=== PATIENT | male | born 1970 | race Caucasian/White ===

== ENCOUNTER 2019-07-18 13:27 | Outpatient (CLI) | payer BC, SELFPAY ==
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
== END 2019-07-18 13:28 | disposition home or self-care (01) ==
PROVIDERS: Family Provider Electrodiagnostic Medicine; PCP Electrodiagnostic Medicine; Visit Provider Electrodiagnostic Medicine
DX: M79.672 Pain in left foot (principal); M77.32 Calcaneal spur, left foot
CPT/HCPCS: 73630

== ENCOUNTER 2019-07-30 11:17 | Emergency (ER) | payer BC, SELFPAY ==
[2019-07-30 11:19] VITALS: BMI 33.9
--- NOTE | 2019-07-30 11:19 | XR_ITS ---
WS: [id number] PORTABLE CHEST HISTORY: Chest discomfort COMPARISON: 03/02/2018 Benign granuloma central LEFT lung. No pneumonia. No pneumothorax. No pleural effusion or pneumothora x. Cardiac size: Normal. Mediastinum/Aorta: Normal mediastinum. No osseous abnormality seen. XR/XR chest 1V portable [id number] IMPRESSION: Unremarkable portable chest.
--- NOTE | 2019-07-30 11:19 | ECG_ITS ---
[facility] Test Date: 2019-07-30 Pat Name: Ger Bar Department: Room: Gender: Male Inventory Transcriber: : 1970 Requested By: Zoe Chacon Order Number: [id number] Carmelo MD: Adriane Veronica M.D. Measurements Intervals [place] Rate: 83 P: 48 HI: 144 QRS: 43 QRSD: 93 T: 49 QT: 349 QTc: 412 Interpretive Statements SINUS RHYTHM Compared to ECG 03/02/2018 12:38:22 No significant changes Electronically Signed On 07-30-2019 23:41:51 CDT by Adriane Veronica M.D. [id number] f
[2019-07-30 11:25] VITALS: BP 124/75; PULSE 86; RESP 18; TEMP 37.1; O2SAT 96
[2019-07-30 11:48] VITALS: BP 122/73; BP 124/75; BP 126/76; PULSE 86; PULSE 92; PULSE 98
[2019-07-30 11:55] LABS: Basophils % 0.4 %; Eosinophils # 0.1 10^3/uL (0.0-0.8); Eosinophils % 2.5 %; Hematocrit 42.2 % (42.0-52.0); Hemoglobin 13.7 g/dL (11.7-16.6); Lymphocytes # 0.9 10^3/uL (0.8-4.8); Lymphocytes % 33.1 %; Mean Corpuscular HGB Conc 32.5 g/dL (30.0-36.0); Mean Corpuscular Hemoglobin 33.7 pg (28.0-34.0); Mean Corpuscular Volume 103.7 fL (80-94); Mean Platelet Volume 11.1 fL (7.4-10.4); Monocytes # 0.4 10^3/uL (0.2-0.9); Monocytes % 14.4 %; Neutrophils # 1.4 10^3/uL (1.8-7.7); Neutrophils % 49.2 %; Nucleated Red Blood Cells % 0 %; Platelet Count 59 10^3/cmm (130-400); Red Blood Count 4.07 10^6/uL (4.1-5.3); Red Cell Distribution Width 13.2 % (12.1-15.1); White Blood Count 2.8 10^3/uL (4.0-10.0)
[2019-07-30 12:17] LABS: Troponin(5th) Baseline 11 ng/L (0-15)
[2019-07-30 12:25] LABS: Alanine Aminotransferase 36 U/L (0-41); Albumin Level 4.4 g/dL (3.5-5.2); Alkaline Phosphatase 80 IU/L (40-130); Anion Gap 18.4 (5-19); Aspartate Amino Transferase 37 U/L (0-40); Blood Urea Nitrogen 12 mg/dL (6-20); Calcium 9.6 mg/dL (8.5-10.5); Carbon Dioxide 22 mmol/L (22-29); Chloride 104 mmol/L (98-107); Globulin 1.8 g/dL (1.3-4.6); Glomerular Filtration Rate 119.4 mL/min (90-130); Glucose 137 mg/dL (65-115); Lipase 33 U/L (13-60); Magnesium 1.7 mg/dL (1.7-2.3); Osmolality Calculated 288 mOsm/kg (285-295); Potassium 4.4 mmol/L (3.5-5.1); Sodium 140 mmol/L (136-145); Thyroid Stimulating Hormone 0.92 uIU/mL (0.27-4.20); Total Bilirubin 1.2 mg/dL (0.15-1.2); Total Protein 6.2 g/dL (6.6-8.7)
--- NOTE | 2019-07-30 12:35 | W.ED.SYNCOPE ---
HPI - Syncope General: Chief Complaint: Syncope Stated Complaint: warmth in chest/lightheaded/weakness Time Seen by Provider: 07/30/19 11:19 Source: patient Mode of arrival: ambulatory Limitations: no limitations History of Present Illness: HPI narrative: Mr. Bar is a nice 49-year-old male who comes in complaining of an episode of feeling warm all over, lightheaded, fatigued and like he could nearly pass out. Patient was only doing mild exertion at that time. The symptoms lasted a total of 4 to 5 minutes and then resolve spontaneously. The patient has had similar symptoms in the past but has never been able to figure out a cause. He denies any chest pain but he did have palpitations during this episode. Patient denies any headache, back pain, abdominal pain, leg or extremity pain, or increased weakness one side more than another. Associated symptoms: Deny abdominal pain, chest pain, fever(s), headache(s), lightheadedness, nausea or vertigo Review of Systems Const: Reports: fatigue and malaise; Denies: fever(s), chills, body aches or diaphoresis Eyes: Denies: change in vision, blurry vision, blind spots, photophobia, eye discharge or eye redness ENMT: Denies: throat pain, odynophagia, hoarseness, swelling of lips/tongue, oral sores, ear or mastoid pain, ear discharge, change in hearing or nasal discharge Card: Reports: palpitations and pre-syncope; Denies: chest pain, irregular heart rhythm, edema, lightheadedness, syncope, dyspnea on exertion or orthopnea Resp: Denies: dyspnea, productive cough, non-productive cough, wheezing, hemoptysis or chest congestion GI: Denies: abdominal pain, nausea, vomiting, hematemesis, coffee ground emesis, heartburn, diarrhea, constipation, GI cramping, hematochezia or melena : Denies: flank pain, dysuria, urinary frequency, urinary urgency or hematuria Musc: Denies: neck pain, back pain, extremity pain, extremity swelling, joint pain, joint swelling, joint redness, joint warmth or joint stiffness Skin/Breast: Denies: rash, pruritus, erythema, skin tenderness or jaundice Neuro: Reports: weakness in extremities and dizziness; Denies: headache(s), numbness in extremities, sensory changes, lack of coordination, difficulty walking, vertigo, confusion, Slurred speech present or seizure-like activity Brandyn/Lymph: Denies: easy bruising, easy bleeding, petechiae, purpura or enlarged lymph nodes All/Imm: Denies: urticaria, throat swelling, tongue swelling, facial swelling or acute wheezing PFSH ED PFSH: Medical History Diabetes Hypertension Surgical History History of knee surgery Social History Smoking and tobacco status: never smoked Physical Exam Const: COMMON NORMALS: no acute distress, patient oriented x3, no limitations, healthy appearing and well nourished GENERAL APPEARANCE: cooperative, well kempt and well developed HENMT: COMMON NORMALS: normocephalic, atraumatic, external ears normal, EAC's normal and Normal external nose present HEAD & SCALP: normal to inspection, normocephalic and atraumatic FACE & SINUS: normal facial exam and face symmetric NOSE: Normal external nose present and Normal nares present EXTERNAL EAR: Yes external ears normal EXTERNAL AUDITORY CANAL: EAC's normal MOUTH: Normal oral and palatal mucosa present, lip normal and tongue normal Eye: COMMON NORMALS: Equal, round and reactive pupils present and conjunctivae normal GENERAL EYE: appearance normal, both eyes and all related structures ALIGNMENT: Yes alignment normal PERIORBITAL: periorbital findings normal EYELID: eyelids normal CONJUNCTIVA: Yes conjunctivae normal SCLERA: sclerae normal PUPIL: Yes Equal, round and reactive pupils present Neck/C-Spine: COMMON NORMALS: full ROM, no lymphadenopathy, supple, no meningeal signs and no JVD GENERAL: Yes normal visual inspection and Yes trachea midline Chest: COMMONS NORMALS: normal inspection of the chest and normal palpation of entire chest wall Resp: COMMON NORMALS: normal respiratory effort, No retractions and No use of accessory muscles EFFORT & INSPECTION: Yes able to speak in complete sentences and Yes symmetric chest movement AUSCULTATION: no crackles, no rales, no rhonchi and no wheezes Cardio: COMMON NORMALS: no JVD, regular rate, regular rhythm, S1 normal heart sound present and S2 normal heart sound present RATE: regular rate RHYTHM: regular rhythm HEART SOUNDS: S1 normal heart sound present, S2 normal heart sound present, no click, no gallops, no murmurs, no rubs and abnormal split S2 GI: COMMON NORMALS: Soft to palpation and No hepatosplenomegaly present PALPATION: Yes Soft to palpation, No Tenderness to palpation present (GI), No Guarding due to palpation present (GI), No Rigid due to palpation, Yes No hepatosplenomegaly present, No Hernia present, No Palpable mass present and No Pulsatile mass present : COMMON NORMALS: Yes no CVA tenderness BLADDER/KIDNEY EXAM: Yes no CVA tenderness Back/Pelvis: COMMON NORMALS: no CVA tenderness, thoracic and lumbar spine normal to inspection, no thoracic nor lumbar tenderness and thoraco-lumbar ROM normal Extremity: COMMON NORMALS: normal to inspection, full ROM, capillary refill normal, no joint enlargement, no clubbing, cyanosis or edema and no calf tenderness Neuro: COMMON NORMALS: patient oriented x3, CN's II-XII intact bilaterally, moves all extremities, no focal motor deficits and no sensory deficits noted MENINGEAL SIGNS: Yes no meningeal signs SPEECH: speech normal Psych: COMMON NORMALS: mental status grossly normal, Normal thought process present, cooperative, normal affect, speech normal and activity/motor behavior normal APPEARANCE: Yes well kempt SPEECH: Yes normal speech THOUGHT PROCESS: Normal thought process present Skin: COMMON NORMALS: no rashes or lesions noted, turgor normal, no jaundice, no petechiae and no mottling GENERAL SKIN EXAM: no rashes or lesions noted and turgor normal Course Vital Signs: Vital signs: Vital Signs Temperature 98.8 F 07/30/19 14:54 Pulse Rate 80 07/30/19 14:54 Respiratory Rate 16 07/30/19 14:54 Blood Pressure 130/79 07/30/19 14:54 Pulse Oximetry 98 07/30/19 14:54 MDM - Syncope MDM Narrative: Medical decision making narrative: Mr. Bar is a very nice 49-year-old male who comes in with concern of a near syncopal episode. His EKG shows no sign of Qyhnv-Kfpbmqdgi-Kooxw syndrome, obstructed AV pathway, bifascicular block, Brugada syndrome, Bbpx-Epxzai-Qphaxg syndrome, left ventricular hypertrophy due to aortic stenosis or hypertrophic obstructive cardiomyopathy, epsilon waves or long or short QT syndrome. Patient's not had any chest pain and his cardiac enzymes are negative x2. He has a negative d-dimer. With the patient having numerous episodes of this this is likely some type of arrhythmia and he may need some further work-up. I did review his case with Dr. Slaughter who is in agreement to follow-up with him and recheck this. Incidentally the patient was found to have a leukopenia and thrombocytopenia and he does have exposure to recent tick bite. We are going to go ahead and start him on doxycycline and Dr. Simmons will follow-up on this as well. Lab Data: Attestation: I reviewed the patient's lab results. Labs: Lab Results 07/30/19 07/30/19 07/30/19 Range/Units 11:35 11:35 11:35 WBC 2.8 L (4.0-10.0) 10^3/ uL RBC 4.07 L (4.1-5.3) 10^6/u L Hgb 13.7 (11.7-16.6) g/dL Hct 42.2 (42.0-52.0) % MCV 103.7 H (80-94) fL MCH 33.7 (28.0-34.0) pg MCHC 32.5 (30.0-36.0) g/dL RDW 13.2 (12.1-15.1) % Plt Count 59 L (130-400) 10^3/c mm MPV 11.1 H (7.4-10.4) fL Neut % (Auto) 49.2 % Lymph % (Auto) 33.1 % Emmet % (Auto) 14.4 % Eos % (Auto) 2.5 % Baso % (Auto) 0.4 % Neut # (Auto) 1.4 L (1.8-7.7) 10^3/u L Lymph # (Auto) 0.9 (0.8-4.8) 10^3/u L Emmet # (Auto) 0.4 (0.2-0.9) 10^3/u L Eos # (Auto) 0.1 (0.0-0.8) 10^3/u L Baso # (Auto) 0.0 (0.0-0.1) 10^3/u L Nucleated RBC % (a uto) 0 % Nucleated RBCs # 0.0 /100WBC D-Dimer (0-0.59) ug/mIFE U Sodium 140 (136-145) mmol/L Potassium 4.4 (3.5-5.1) mmol/L Chloride 104 (98-107) mmol/L Carbon Dioxide 22 (22-29) mmol/L Anion Gap 18.4 (5-19) BUN 12 (6-20) mg/dL Creatinine 0.7 (0.7-1.2) mg/dL GFR Calculation 119.4 (90-130) mL/min Glucose 137 H (65-115) mg/dL POC Glucose (70-110) mg/dL Calculated Osmolal ity 288 (285-295) mOsm/k g Calcium 9.6 (8.5-10.5) mg/dL Magnesium 1.7 (1.7-2.3) mg/dL Total Bilirubin 1.2 (0.15-1.2) mg/dL AST 37 (0-40) U/L ALT 36 (0-41) U/L Alkaline Phosphata se 80 (40-130) IU/L Troponin T Baselin e 11 (0-15) ng/L Troponin T 120 Min [place] (0-15) ng/L Delta Troponin T (0-10) ABS# Total Protein 6.2 L (6.6-8.7) g/dL Albumin 4.4 (3.5-5.2) g/dL Globulin 1.8 (1.3-4.6) g/dL Lipase 33 (13-60) U/L TSH 0.92 (0.27-4.20) uIU/ mL Urine Color (Yellow) Urine Appearance (CLEAR) Urine pH (5-7) Ur Specific Gravit y (1.005-1.030) Urine Protein (Negative) Urine Glucose (UA) (Normal) Urine Ketones (Negative) Urine Blood (Negative) Urine Nitrate (Negative) Urine Bilirubin (NEGATIVE) Urine Urobilinogen (Negative) mg/dL Ur Leukocyte Brenda ase (Negative) Urine RBC (0-2) /hpf Urine WBC (0-5) /hpf Ur Squamous Epith Cells (0-5) Urine Bacteria (NONE) 07/30/19 07/30/19 07/30/19 Range/Units 11:35 12:02 13:02 WBC (4.0-10.0) 10^3/ uL RBC (4.1-5.3) 10^6/u L Hgb (11.7-16.6) g/dL Hct (42.0-52.0) % MCV (80-94) fL MCH (28.0-34.0) pg MCHC (30.0-36.0) g/dL RDW (12.1-15.1) % Plt Count (130-400) 10^3/c mm MPV (7.4-10.4) fL Neut % (Auto) % Lymph % (Auto) % Emmet % (Auto) % Eos % (Auto) % Baso % (Auto) % Neut # (Auto) (1.8-7.7) 10^3/u L Lymph # (Auto) (0.8-4.8) 10^3/u L Emmet # (Auto) (0.2-0.9) 10^3/u L Eos # (Auto) (0.0-0.8) 10^3/u L Baso # (Auto) (0.0-0.1) 10^3/u L Nucleated RBC % (a uto) % Nucleated RBCs # /100WBC D-Dimer 0.46 (0-0.59) ug/mIFE U Sodium (136-145) mmol/L Potassium (3.5-5.1) mmol/L Chloride (98-107) mmol/L Carbon Dioxide (22-29) mmol/L Anion Gap (5-19) BUN (6-20) mg/dL Creatinine (0.7-1.2) mg/dL GFR Calculation (90-130) mL/min Glucose (65-115) mg/dL POC Glucose 90 (70-110) mg/dL Calculated Osmolal ity (285-295) mOsm/k g Calcium (8.5-10.5) mg/dL Magnesium (1.7-2.3) mg/dL Total Bilirubin (0.15-1.2) mg/dL AST (0-40) U/L ALT (0-41) U/L Alkaline Phosphata se (40-130) IU/L Troponin T Baselin e (0-15) ng/L Troponin T 120 Min [place] (0-15) ng/L Delta Troponin T (0-10) ABS# Total Protein (6.6-8.7) g/dL Albumin (3.5-5.2) g/dL Globulin (1.3-4.6) g/dL Lipase (13-60) U/L TSH (0.27-4.20) uIU/ mL Urine Color Yellow (Yellow) Urine Appearance Clear (CLEAR) Urine pH 5 (5-7) Ur Specific Gravit y 1.010 (1.005-1.030) Urine Protein Neg (Negative) Urine Glucose (UA) 4+ H (Normal) Urine Ketones Negative (Negative) Urine Blood Neg (Negative) Urine Nitrate Negative (Negative) Urine Bilirubin Neg (NEGATIVE) Urine Urobilinogen Norm (Negative) mg/dL Ur Leukocyte Brenda ase Negative (Negative) Urine RBC None (0-2) /hpf Urine WBC None (0-5) /hpf Ur Squamous Epith Cells 0-4 H (0-5) Urine Bacteria Trace (NONE) 07/30/19 Range/Units 13:39 WBC (4.0-10.0) 10^3/ uL RBC (4.1-5.3) 10^6/u L Hgb (11.7-16.6) g/dL Hct (42.0-52.0) % MCV (80-94) fL MCH (28.0-34.0) pg MCHC (30.0-36.0) g/dL RDW (12.1-15.1) % Plt Count (130-400) 10^3/c mm MPV (7.4-10.4) fL Neut % (Auto) % Lymph % (Auto) % Emmet % (Auto) % Eos % (Auto) % Baso % (Auto) % Neut # (Auto) (1.8-7.7) 10^3/u L Lymph # (Auto) (0.8-4.8) 10^3/u L Emmet # (Auto) (0.2-0.9) 10^3/u L Eos # (Auto) (0.0-0.8) 10^3/u L Baso # (Auto) (0.0-0.1) 10^3/u L Nucleated RBC % (a uto) % Nucleated RBCs # /100WBC D-Dimer (0-0.59) ug/mIFE U Sodium (136-145) mmol/L Potassium (3.5-5.1) mmol/L Chloride (98-107) mmol/L Carbon Dioxide (22-29) mmol/L Anion Gap (5-19) BUN (6-20) mg/dL Creatinine (0.7-1.2) mg/dL GFR Calculation (90-130) mL/min Glucose (65-115) mg/dL POC Glucose (70-110) mg/dL Calculated Osmolal ity (285-295) mOsm/k g Calcium (8.5-10.5) mg/dL Magnesium (1.7-2.3) mg/dL Total Bilirubin (0.15-1.2) mg/dL AST (0-40) U/L ALT (0-41) U/L Alkaline Phosphata se (40-130) IU/L Troponin T Baselin e (0-15) ng/L Troponin T 120 Min [place] 9.93 (0-15) ng/L Delta Troponin T -1.07 L (0-10) ABS# Total Protein (6.6-8.7) g/dL Albumin (3.5-5.2) g/dL Globulin (1.3-4.6) g/dL Lipase (13-60) U/L TSH (0.27-4.20) uIU/ mL Urine Color (Yellow) Urine Appearance (CLEAR) Urine pH (5-7) Ur Specific Gravit y (1.005-1.030) Urine Protein (Negative) Urine Glucose (UA) (Normal) Urine Ketones (Negative) Urine Blood (Negative) Urine Nitrate (Negative) Urine Bilirubin (NEGATIVE) Urine Urobilinogen (Negative) mg/dL Ur Leukocyte Brenda ase (Negative) Urine RBC (0-2) /hpf Urine WBC (0-5) /hpf Ur Squamous Epith Cells (0-5) Urine Bacteria (NONE) Imaging Data^: CXR: Attestation: I personally reviewed and interpreted this imaging study as follows: Radiologist's impression: [address] [address] XRay Report Signed Patient: Ger Bar Unit #: [id number] : 1970 Age/Sex: 49 / M ADM Date: 07/30/19 Loc: ER Room/Bed: Attending Dr: Ordering Provider/Ordering MD: Zoe Cortez DO Date of Service: 07/30/19 Procedure(s): XR chest 1V portable [id number] Accession Number(s): [id number] Report Number: [id number] WS: [id number] PORTABLE CHEST HISTORY: Chest discomfort COMPARISON: 03/02/2018 Benign granuloma central LEFT lung. No pneumonia. No pneumothorax. No pleural effusion or pneumothorax. Cardiac size: Normal. Mediastinum/Aorta: Normal mediastinum. No osseous abnormality seen. XR/XR chest 1V portable [id number] IMPRESSION: Unremarkable portable chest. Dictated By: Therese Burks DO Signed By: Therese Burks DO Signed Date/Time: 07/30/19 1147 DD/ 1146 EKG Data^: EKG 1: Attestation: I personally reviewed and interpreted this EKG as follows: EKG interpretation date: 07/30/19 EKG interpretation time: 11:39 Interpretation: Normal sinus rhythm at 83-minute, normal axis, no acute ST-T wave changes. EKG 2: EKG interpretation date: 07/30/19 EKG interpretation time: 12:58 Interpretation: Normal sinus rhythm at 85 beats a minute, normal axis, normal intervals, no blocks, no acute ST or T wave changes. Discharge Plan Discharge Patient Disposition: Home, Self-Care Clinical Impression: Thrombocytopenia Tick bite Qualifiers: Encounter type: initial encounter Qualified Code(s): W57.XXXA - Bitten or stung by nonvenomous insect and other nonvenomous arthropods, initial encounter Leukopenia Qualifiers: Leukopenia type: unspecified Qualified Code(s): D72.819 - Decreased white blood cell count, unspecified Condition: Stable Prescriptions: New doxycycline hyclate 100 mg capsule 100 mg PO BID 21 Days Qty: 42 RF: 0 Zofran 4 mg tablet 4 mg PO Q6H PRN (Reason: nausea and vomiting) Qty: 20 RF: 0 No Action tizanidine 2 mg tablet 2 mg PO TID RF: 0 aspirin 325 mg Tablet 325 mg PO ONCE RF: 0 hydrocodone-acetaminophen 5-325 mg tablet 1 tab PO Q6H PRN (Reason: Pain) RF: 0 metformin 1,000 mg tablet 1,000 mg PO BID RF: 0 glimepiride 4 mg tablet 4 mg PO DAILY RF: 0 hydrochlorothiazide 25 mg tablet 25 mg PO DAILY PRN (Reason: swelling) RF: 0 lisinopril 40 mg tablet 40 mg PO DAILY RF: 0 Jardiance 10 mg tablet 10 mg PO DAILY RF: 0 Discharge Orders: Discharge Order (Routine); Ordered 07/30/19 Ordered By: Zoe Cortez Referrals: Reid Slaughter DO [Primary Care Provider] - 1-3 days Discharge Diet: Advance as tolerated Discharge Activity: Increase activity as tolerated Patient Instructions: Insect Bite or Sting (ED), Tick Bite (ED), [place] Spotted Fever (ED) Activity Restrictions/Additional Instructions: Please return to the ER immediately for any of the signs or symptoms listed on your discharge instruction sheets, worsening/changing of your symptoms, you are not getting better as quickly as expected, or for ANY other cause or concerns. Discharge Date/Time: 07/30/19 14:59 Coding Level of Care Code ED [employer] Specialist for [employer] Fwd Exam Comprehensive
[2019-07-30 12:45] LABS: Protein Urine Neg (Negative); Urine Appearance Clear (CLEAR); Urine Color Yellow (Yellow); pH Urine 5 (5-7)
[2019-07-30 12:46] LABS: Add Urine Culture? No; Bacteria Urine TRACE; Bilirubin Urine Neg (NEGATIVE); Blood Urine Neg (Negative); Glucose Urine UA 4+ (Normal); Ketones Urine Negative (Negative); Leukocyte Esterase Urine Negative (Negative); Nitrate Urine Negative (Negative); Squamous Epithelial Cell Urine 0-4 (0-5); Urobilinogen Urine Norm (Negative)
[2019-07-30 13:06] LABS: Glucose Point of Care 90 mg/dL (70-110)
--- NOTE | 2019-07-30 13:19 | ECG_ITS ---
[facility] Test Date: 2019-07-30 Pat Name: Ger Bar Department: Room: Gender: Male Last Inserter: : 1970 Requested By: Zoe Chacon Order Number: [id number] Carmelo MD: Adriane Veronica M.D. Measurements Intervals [place] Rate: 85 P: 38 OK: 141 QRS: 27 QRSD: 94 T: 29 QT: 350 QTc: 418 Interpretive Statements SINUS RHYTHM INTERPRETATION BASED ON A DEFAULT AGE OF 40 YEARS Compared to ECG 07/30/2019 11:39:41 No significant changes Electronically Signed On 07-31-2019 0:10:37 CDT by Adriane Veronica M.D. [id number] f
[2019-07-30 13:27] LABS: D Dimer 0.46 ug/mIFEU (0-0.59)
[2019-07-30 14:03] LABS: Troponin 5 2HR 9.93 ng/L (0-15)
[2019-07-30 14:18] LABS: Troponin 5 2HR Delta -1.07 ABS# (0-10)
[2019-07-30 14:23] VITALS: BP 124/73; PULSE 83; RESP 24; O2SAT 97
[2019-07-30 14:54] VITALS: BP 130/79; PULSE 80; RESP 16; TEMP 37.1; O2SAT 98
[2019-07-31 12:57] LABS: Lyme AB Screen <0.90 index
[2019-08-02 17:22] LABS: E. Chaffeensis AB IGG <1:64; E. Chaffeensis AB IGM <1:20
[2019-08-03 16:25] LABS: RMSF IGG NOT DETECTED; RMSF IGM NOT DETECTED
== END 2019-07-30 14:59 | disposition home or self-care (01) ==
PROVIDERS: Emergency Provider Emergency Medicine; Family Provider Electrodiagnostic Medicine; PCP Electrodiagnostic Medicine
DX: D69.6 Thrombocytopenia, unspecified (principal); D72.819 Decreased white blood cell count, unspecified; T14.8XXA Other injury of unspecified body region, initial encounter; W57.XXXA Bitten or stung by nonvenomous insect and other nonvenomous arthropods, initial encounter; Z79.82 Long term (current) use of aspirin; Z79.84 Long term (current) use of oral hypoglycemic drugs; E11.9 Type 2 diabetes mellitus without complications; I10 Essential (primary) hypertension
CPT/HCPCS: 12345; 36415; 36416; 71045; 80053; 81001; 82962; 83690; 83735; 84443; 84484; 85025; 85378; 86618; 86666; 86757; 93005; 99283; 99284

== ENCOUNTER 2020-10-27 10:42 | Outpatient (CLI) | payer BC, SELFPAY ==
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
== END 2020-10-27 10:43 | disposition home or self-care (01) ==
LOC: RAD 10:48
PROVIDERS: PCP Electrodiagnostic Medicine; Visit Provider Electrodiagnostic Medicine
DX: G89.29 Other chronic pain (principal); M16.11 Unilateral primary osteoarthritis, right hip
CPT/HCPCS: 73502

== ENCOUNTER → 2020-11-30 08:38 | Outpatient (BNVA) | payer BC, SELFPAY | PROVIDERS: PCP Electrodiagnostic Medicine; Referring Provider Electrodiagnostic Medicine; Visit Provider Specialist | DX: M25.551 Pain in right hip (principal) | CPT/HCPCS: 73502 ==

== ENCOUNTER 2020-12-15 15:43 | Outpatient (CLI) | payer BC, SELFPAY ==
--- NOTE | 2020-12-15 15:49 | MR_ITS ---
WS: [id number] MRI RIGHT HIP NONCONTRAST TECHNIQUE: Axial T1, axial T2 fat sat, coronal T1, coronal STIR, sagittal T2 fat sat, sagittal T1, an d sagittal T2 fat sat, of both hips. CLINICAL INFORMATION: PAIN IN UNSPECIFIED HIP COMPARISON: Radiograph November 30, 2020 FINDINGS: Advanced osteoarthritis right hip with caes-ww-znkr articulation. Advanced joint space narrowing with azik-af-sjtq articulation at the superior lateral acetabulum with presumed femoral acetabular imping ement. Hypertrophic spurring along the superior lateral right acetabulum with labral ossification. Sm all amount of edema in the acetabulum and underlying femoral head. Small amount of subchondral cysti c change involving the superolateral femoral head. Small para labral cyst right posterior superior [place] measuring 4.7 mm. Moderate degenerative narrowing left hip. Mild hypertrophic acetabular spurring. No edema in the femo ral head. No acute fractures in either hip. Normal pubic rami. A few slight prominent inguinal lymph nodes like ly reactive. Normal pelvic soft tissues. Normal bone marrow signal in the lower lumbar spine and pelv is. Normal bone marrow signal in the sacrum. MR/MR hip RT wo con* [id number] IMPRESSION: 1. Advanced degenerative arthritis right hip with joint space narrowing and pollo ne-on-bone articulation with presumed femoral acetabular impingement. Associate d subchondral cystic change with a small amount of edema 2. Small para labral cyst right posterior superior labrum measuring 4.7 mm. 3. Moderate narrowing left hip with no edema. 4. Normal bone marrow signal in the lower lumbar spine and pelvis and sacrum. 5. A few prominent inguinal lymph nodes likely reactive.
== END 2020-12-15 15:44 | disposition home or self-care (01) ==
PROVIDERS: PCP Electrodiagnostic Medicine; Visit Provider Specialist
DX: M16.11 Unilateral primary osteoarthritis, right hip (principal)
CPT/HCPCS: 73721

== ENCOUNTER → 2020-12-22 10:55 | Outpatient (BNVA) | payer BC, SELFPAY | PROVIDERS: PCP Electrodiagnostic Medicine; Visit Provider Nurse Practitioner Family | DX: Z20.822 Contact with and (suspected) exposure to COVID-19 (principal) | CPT/HCPCS: 87426; 87635 ==

== ENCOUNTER 2021-11-04 08:01 | Oncology outpatient (recurring) (ONCR) | payer BC, SELFPAY | END 2021-11-05 23:59 | disposition home or self-care (01) | PROVIDERS: PCP Electrodiagnostic Medicine; Visit Provider Internal Medicine Medical Oncology | DX: D69.6 Thrombocytopenia, unspecified (principal); R17 Unspecified jaundice | CPT/HCPCS: 36415; 80053; 83615; 84443; 85025 ==

== ENCOUNTER 2021-11-16 08:11 | Outpatient (CLI) | payer BC, SELFPAY ==
--- NOTE | 2021-11-16 08:30 | CT_ITS ---
WS: [id number] CT ABDOMEN WITH CONTRAST HISTORY: thrombocytopenia and elevated bilirubin Contiguous single phase 5 mm axial imaging performed to the abdomen. Oral contrast has been provided. Coronal and sagittal reformats are submitted. [facility] at [facility] one of these dose optimization techniques: automated exposure control; mA and/or kV adjustment per patient size (includes targeted exams where dose is matched to clinical indication); or iterative reconstruct ion. CONTRAST: Omnipaque 350; 95 mL IV. DLP: 865.06 mGy.cm COMPARISON: 04/08/2010 Lower thorax: Unremarkable. Liver: Normal. No intrahepatic dilatation. Recanalization of the umbilical vein. Gallbladder: Prior cholecystectomy. No bile duct dilatation. Pancreas: Normal. Spleen: Markedly enlarged spleen extends over a length of 18.2 cm. This represents a significant ellis ge since the prior study from 2010. There are also numerous splenic varicosities at the hilum. Adrenals: Normal. Right kidney: Normal. Left kidney: Normal. Aorta: Normal. GI tract: Stomach is nondistended. No oral contrast was provided. No small bowel dilatation. The visu alized colon within the abdomen demonstrates mild constipation. There are a few very small scattered mesenteric lymph nodes. There is also very mild soft tissue stra nding which is probably edema throughout the omentum and mesentery. Retroperitoneal lymph node measur es 10 mm just below the renal vein. Abdominal wall: Fat-containing umbilical hernia. Visualized osseous structures: Unremarkable. CT/CT abdomen w con* [id number] IMPRESSION: 1. Marked splenomegaly. Spleen now measures 18.2 cm as compared to 9.9 cm in 2 011. 2. Numerous splenic and gastric varices and recanalized umbilical vein. Consid er portal hypertension as an etiology. 3. Prior cholecystectomy. 4. Very small shoddy mesenteric and retroperitoneal lymph nodes. 5. Low-attenuation liver lesion seen on the prior CT of 2010 are no longer aminah arent.
[2021-11-16] MEDS: iohexol 350 mg/mL 100 mL Btl IV (08:42)
[2021-11-16] MEDS: iohexol 350 mg/mL 100 mL Btl PO (08:42)
== END 2021-11-16 08:12 | disposition home or self-care (01) ==
LOC: RAD 08:12
PROVIDERS: PCP Electrodiagnostic Medicine; Visit Provider Internal Medicine Medical Oncology
DX: D69.6 Thrombocytopenia, unspecified (principal); R16.1 Splenomegaly, not elsewhere classified; Z90.49 Acquired absence of other specified parts of digestive tract; K76.89 Other specified diseases of liver
CPT/HCPCS: 74160

== ENCOUNTER 2022-11-17 10:35 | Emergency (ER) | payer BC, SELFPAY ==
[2022-11-17 10:45] VITALS: BP 146/82; PULSE 72; RESP 16; TEMP 36.8; O2SAT 98
--- NOTE | 2022-11-17 11:11 | W.ED.SKABFB ---
HPI - Skin/Abscess/Foreign Bdy General: Chief complaint: Skin/Abscess/Foreign Body Stated complaint: fever, abscess on low back Time Seen by Provider: 11/17/22 11:06 History of Present Illness: 52-year-old male presents emergency room with painful and swollen area for the past few weeks. Patient further reveals that he was diagnosed with abscess about 30 days ago and started on Augmentin. After completing Augmentin patient was having symptoms and was placed on Bactrim which patient completed yesterday. Patient reveals increased swelling and pain around the area and was told to return to emergency room for further evaluation and treatment. He describes his pain as throbbing sensation with severity of 5 out of 10. Denies any rectal pain, rectal bleeding or dark stool. No fever or chills. Associated symptoms: Deny chills or fever(s) Review of Systems General: Reports: 10 or more systems reviewed and unremarkable except in HPI and below Const: Denies: fever(s), chills, body aches or change in appetite Resp: Denies: dyspnea, productive cough, non-productive cough, wheezing or stridor Skin/Breast: Reports: skin tenderness and skin swelling Brandyn/Lymph: Denies: petechiae, purpura, enlarged lymph nodes or tender lymph nodes PFSH ED PFSH: Medical History Hallux rigidus, bilateral Hypertension Osteoarthritis Type 2 diabetes mellitus Surgical History History of cholecystectomy History of knee surgery Arthroscopic left knee surgery x 4 History of tonsillectomy and adenoidectomy Family History Grandfather CAD (coronary artery disease) Family/Other Cancer Prostate cancer Brother Diabetes Father Hypertension Denies family history of Clotting disorder Dementia Hyperlipidemia Psychiatric illness Chronic kidney disease (CKD) Suicide Anesthesia complication Bleeding disorder Lung disease Stroke Social History Smoking and tobacco/nicotine status: former use of tobacco/nicotine (smoked off and on) Alcohol intake: current Alcohol intake frequency: 0-2 Drinks per Day Physical Exam Const: COMMON NORMALS: no acute distress, average body habitus, patient oriented x3, no limitations, healthy appearing, alert and well nourished HENMT: COMMON NORMALS: normocephalic, atraumatic, hearing grossly normal bilaterally, external ears normal, EAC's normal, TM's normal bilaterally, Normal external nose present, Normal nasal mucous membranes and turbinates present, moist oral mucous membranes, oropharynx normal, dentition normal and gingiva normal HEAD & SCALP: normocephalic and atraumatic NOSE: Normal external nose present and Normal nasal mucous membranes and turbinates present EXTERNAL EAR: Yes external ears normal EXTERNAL AUDITORY CANAL: EAC's normal TYMPANIC MEMBRANE: TM's normal bilaterally Neck/C-Spine: COMMON NORMALS: full ROM, no lymphadenopathy, supple, no meningeal signs, no JVD, Thyroid normal and No carotid bruits THYROID: Thyroid normal Resp: COMMON NORMALS: normal respiratory effort, No retractions, No use of accessory muscles, clear to auscultation bilaterally and percussion normal AUSCULTATION: clear to auscultation bilaterally PERCUSSION: percussion normal Cardio: COMMON NORMALS: no JVD GI: COMMON NORMALS: Normal to inspection, nondistended, normoactive bowel sounds present, Soft to palpation, non-tender, No hepatosplenomegaly present, no masses and no bruits INSPECTION: Yes normal to inspection AUSCULTATION: Yes normoactive bowel sounds PALPATION: Yes Soft to palpation and Yes No hepatosplenomegaly present RECTAL EXAM: Yes deferred : OTHER: indurated area peritoneal area. no sinus or drainage. no bleeding Neuro: COMMON NORMALS: patient oriented x3 SENSORIUM/ORIENTATION: Yes alert MENINGEAL SIGNS: Yes no meningeal signs Psych: COMMON NORMALS: mental status grossly normal, Normal thought process present, cooperative, normal affect, speech normal, activity/motor behavior normal, denies hallucinations, denies homicidal ideation and denies suicidal ideation SPEECH: Yes normal speech THOUGHT PROCESS: Normal thought process present Course Reevaluation(s): Reevaluation #1: stable no distress Consultations: Consultation #1: Discussed patient with Dr. Emma Keys discussed the CT finding with him and recommended starting patient on different antibiotics and recommended close follow-up with him in his clinic. Vital Signs: Vital signs: Vital Signs Temperature 98.2 F 11/17/22 10:45 Pulse Rate 74 11/17/22 14:37 Respiratory Rate 16 11/17/22 10:45 Blood Pressure 109/60 11/17/22 14:37 Pulse Oximetry 98 11/17/22 14:37 Oxygen Delivery Me thod Room Air 11/17/22 13:00 MDM - Skin/Abscess/Foreign Bdy Medicial Decision Making Patient was made come to the emergency room. Patient was given IV antibiotics. Discussed CT scan with patient and . Discussed patient with general surgeon. Close follow-up PCP and general surgery recommended. Differential Diagnosis Likely abscess of skin or subcutaneous tissue, viral exanthem, dermatophytosis, urticaria, herpes zoster, allergic reaction to drug, cellulitis, eczema, insect bites, impetigo and contact dermatitis Lab Data 11/17/22 11:00 11/17/22 11:00 Laboratory Results WBC 3.05 10^3/uL (3.29-11.43) L 11/17/22 11:00 RBC 4.22 10^6/uL (3.85-5.65) 11/17/22 11:00 Hgb 14.80 g/dL (11.27-16.99) 11/17/22 11:00 Hct 42.9 % (37-53) 11/17/22 11:00 MCV 101.7 fl (82-101) H 11/17/22 11:00 MCH 35.1 pg (27-33) H 11/17/22 11:00 MCHC 34.5 g/dL (30-55) 11/17/22 11:00 RDW 13.7 % (12.1-15.1) 11/17/22 11:00 Plt Count 45 10^3/cmm (157-399) L 11/17/22 11:00 MPV 11.0 fL (7.4-10.4) H 11/17/22 11:00 Neut % (Auto) 56.1 % 11/17/22 11:00 Lymph % (Auto) 28.9 % 11/17/22 11:00 [place] % (Auto) 11.8 % 11/17/22 11:00 Eos % (Auto) 2.6 % 11/17/22 11:00 Baso % (Auto) 0.3 % 11/17/22 11:00 Neut # (Auto) 1.71 10^3/uL (1.8-7.7) L 11/17/22 11:00 Lymph # (Auto) 0.9 10^3/uL (0.8-4.8) 11/17/22 11:00 [place] # (Auto) 0.4 10^3/uL (0.2-0.9) 11/17/22 11:00 Eos # (Auto) 0.1 10^3/uL (0.0-0.8) 11/17/22 11:00 Baso # (Auto) 0.0 10^3/uL (0.0-0.1) 11/17/22 11:00 Nucleated RBC % (auto) 0 % 11/17/22 11:00 Nucleated RBCs # 0.0 /100WBC 11/17/22 11:00 Sodium 136 mmol/L (136-145) 11/17/22 11:00 Potassium 4.0 mmol/L (3.5-5.1) 11/17/22 11:00 Chloride 103 mmol/L (98-107) 11/17/22 11:00 Carbon Dioxide 23 mmol/L (22-29) 11/17/22 11:00 Anion Gap 14.0 (5-19) 11/17/22 11:00 BUN 8 mg/dL (6-20) 11/17/22 11:00 Creatinine 0.7 mg/dL (0.7-1.2) 11/17/22 11:00 GFR Calculation 118.0 mL/min (90-130) 11/17/22 11:00 Glucose 151 mg/dL (65-115) H 11/17/22 11:00 Calculated Osmolality 283 mOsm/kg (285-295) L 11/17/22 11:00 Calcium 9.1 mg/dL (8.5-10.5) 11/17/22 11:00 Total Bilirubin 1.8 mg/dL (0.15-1.2) H 11/17/22 11:00 AST 22 U/L (0-40) 11/17/22 11:00 ALT 17 U/L (0-41) 11/17/22 11:00 Alkaline Phosphatase 108 U/L (40-130) 11/17/22 11:00 Total Protein 6.6 g/dL (6.6-8.7) 11/17/22 11:00 Albumin 3.8 g/dL (3.5-5.2) 11/17/22 11:00 Globulin 2.8 g/dL (1.3-4.6) 11/17/22 11:00 XR interpretation done by ED provider, pending radiology final review Discharge Plan Discharge Patient Disposition: Home Clinical Impression: Abscess, Chronic leukopenia Condition: Stable Prescriptions: New clindamycin HCl 300 mg capsule 300 mg PO TID 10 Days Qty: 30 0RF No Action sulfamethoxazole-trimethoprim [Bactrim DS] 800-160 mg tablet 1 tab PO BID 5 Days Qty: 10 0RF furosemide 20 mg tablet 20 mg PO DAILY PRN (Reason: Edema) glimepiride 4 mg tablet 4 mg PO QPM meloxicam 7.5 mg tablet 7.5 mg PO DAILY PRN (Reason: inflamation) lisinopril 40 mg tablet 40 mg PO QPM Mounjaro 5 mg/0.5 mL pen injector 5 mg SUBCUT Q14D Discharge Orders: Discharge ED (Routine); Ordered 11/17/22 Ordered By: Travis Ansari Referrals: Rajesh Lu MD [Physician] - 7-10 days Reid Slaughter DO [Primary Care Provider] - Discharge Diet: Advance as tolerated Patient Instructions: Opioid Safety, Pain Management Coding Level of Care Code ED Cement Sprayer Helper for Anthony Carrillo
--- NOTE | 2022-11-17 11:13 | CT_ITS ---
WS: [id number] CT PELVIS WITH IV CONTRAST HISTORY: abscess TECHNIQUE: Contiguous imaging is performed of the pelvis with contrast. Coronal and sagittal reformat s are reviewed. All CT scans at [facility] use at least one of these dose optimization techni ques: automated exposure control; mA and/or kV adjustment per patient size (includes targeted exams w here dose is matched to clinical indication); or iterative reconstruction. DLP: 626.30 mGy.cm COMPARISON: None available. Omnipaque 350; 100 mL. No identifiable abscess is identified at the rectum or in the perirectal region. There is very minima l soft tissue prominence just to the RIGHT of midline near the anus. This area of mild inflammation a nd soft tissue thickening measures 17 x 27 mm. There is no fluid or cystic component. There is an add itional, slightly inferior 11 x 7 mm collection with a small amount of air. This is towards the RIGHT perineum. No significantly enlarged lymph nodes. There are a few small lymph nodes in the inguinal regions. Visualized urinary bladder is normal. IMPRESSION: 1. Very tiny area of mild inflammation and enhancement in the RIGHT perirectal soft tissue near the a nus. No central fluid collection. Probably the residual of an abscess measuring 17 x 27 mm. 2. Additional tiny RIGHT perineal fluid collection which is probably a small abscess measuring 11 x 7 mm.
[2022-11-17 11:16] LABS: Basophils % 0.3 %; Eosinophils # 0.1 10^3/uL (0.0-0.8); Eosinophils % 2.6 %; Hematocrit 42.9 % (37-53); Lymphocytes # 0.9 10^3/uL (0.8-4.8); Lymphocytes % 28.9 %; Mean Corpuscular HGB Conc 34.5 g/dL (30-55); Mean Corpuscular Hemoglobin 35.1 pg (27-33); Mean Corpuscular Volume 101.7 fl (82-101); Monocytes # 0.4 10^3/uL (0.2-0.9); Monocytes % 11.8 %; Neutrophils # 1.71 10^3/uL (1.8-7.7); Neutrophils % 56.1 %; Nucleated Red Blood Cells % 0 %; Platelet Count 45 10^3/cmm (157-399); Red Blood Count 4.22 10^6/uL (3.85-5.65); Red Cell Distribution Width 13.7 % (12.1-15.1); White Blood Count 3.05 10^3/uL (3.29-11.43)
[2022-11-17 11:19] VITALS: PULSE 75; O2SAT 99
[2022-11-17 11:41] LABS: Alanine Aminotransferase 17 U/L (0-41); Albumin Level 3.8 g/dL (3.5-5.2); Alkaline Phosphatase 108 U/L (40-130); Aspartate Amino Transferase 22 U/L (0-40); Blood Urea Nitrogen 8 mg/dL (6-20); Calcium 9.1 mg/dL (8.5-10.5); Carbon Dioxide 23 mmol/L (22-29); Chloride 103 mmol/L (98-107); Globulin 2.8 g/dL (1.3-4.6); Glucose 151 mg/dL (65-115); Osmolality Calculated 283 mOsm/kg (285-295); Sodium 136 mmol/L (136-145); Total Bilirubin 1.8 mg/dL (0.15-1.2); Total Protein 6.6 g/dL (6.6-8.7)
[2022-11-17 12:00] VITALS: PULSE 76; O2SAT 99
[2022-11-17] MEDS: iohexol 350 mg/mL 500 mL Btl (per mL) IV (12:04)
[2022-11-17 13:00] VITALS: PULSE 74; O2SAT 98
[2022-11-17] MEDS: clindamycin 600 MG/50 ML PREMIX 100 MG IV (13:43)
[2022-11-17 14:37] VITALS: BP 109/60; PULSE 74; O2SAT 98
== END 2022-11-17 14:40 | disposition home or self-care (01) ==
PROVIDERS: Family Medicine; Emergency Provider Family Medicine; PCP Electrodiagnostic Medicine
DX: D72.818 Other decreased white blood cell count (principal); L02.212 Cutaneous abscess of back [any part, except buttock and flank]; I10 Essential (primary) hypertension; E11.9 Type 2 diabetes mellitus without complications; Z87.891 Personal history of nicotine dependence; Z79.84 Long term (current) use of oral hypoglycemic drugs
CPT/HCPCS: 36415; 72193; 80053; 85025; 87040; 96374; 99285; J3490; Q9967

== ENCOUNTER 2022-11-24 10:11 | Emergency (ER) | payer BC, SELFPAY ==
[2022-11-24 10:18] VITALS: BP 142/83; PULSE 71; RESP 18; TEMP 36.8; O2SAT 98; BMI 32.4
--- NOTE | 2022-11-24 10:26 | ED_ITS ---
HPI - Skin/Abscess/Foreign Bdy General: Chief complaint: Skin/Abscess/Foreign Body Stated complaint: rectum pain, is being treated for infection Time Seen by Provider: 11/24/22 10:16 History of Present Illness: 52-year-old male presents emergency department with complaints of an abscess to the left gluteal region. He states he has been treated for this chronic abscess for the previous 3 months. He states he has seen his primary care provider as well as a general surgeon. He states that he completed a course of antibiotic which included Augmentin and then without significant improvement was prescribed Bactrim DS, he states he several days ago was seen here in the emergency department on 11/17/2022 and received clindamycin antibiotic as his abscess not appear to be improving. He states intermittently he will feel like he is having fevers and chills and weakness. He states he has a longstanding diabetic and his hemoglobin A1c demonstrates improved and moderate blood glucose control. Review of Systems General: Reports: 10 or more systems reviewed and unremarkable except in HPI and below : Reports: other (olive sized mass to the perineum area) Skin/Breast: Reports: erythema, skin pain, skin tenderness, sores and non-he aling lesions PFSH ED PFSH: Medical History Hallux rigidus, bilateral Hypertension Osteoarthritis Type 2 diabetes mellitus Surgical History History of cholecystectomy History of knee surgery Arthroscopic left knee surgery x 4 History of tonsillectomy and adenoidectomy Family History Grandfather CAD (coronary artery disease) Family/Other Cancer Prostate cancer Brother Diabetes Father Hypertension Denies family history of Clotting disorder Dementia Hyperlipidemia Psychiatric illness Chronic kidney disease (CKD) Suicide Anesthesia complication Bleeding disorder Lung disease Stroke Social History Smoking and tobacco/nicotine status: former use of tobacco/nicotine (smoked off and on) Alcohol intake: current Alcohol intake frequency: 0-2 Drinks per Day Physical Exam Const: COMMON NORMALS: no acute distress, patient oriented x3, healthy appearing and alert HENMT: COMMON NORMALS: normocephalic, Normal nasal mucous membranes and turbinates present and moist oral mucous membranes HEAD & SCALP: normocep halic NOSE: Normal nasal mucous membranes and turbinates present Eye: COMMON NORMALS: Equal, round and reactive pupils present and EOMs intact bilaterally PUPIL: Yes Equal, round and reactive pupils present Neck/C-Spine: COMMON NORMALS: full ROM and supple Resp: COMMON NORMALS: normal respiratory effort and clear to auscultation bilaterally AUSCULTATION: clear to auscultation bilaterally Cardio: COMMON NORMALS: regular rate, regular rhythm, S1 normal heart sound present, S2 normal heart sound present and Peripheral pulses 2+ throughout RATE: regular rate RHYTHM: regular rhythm HEART SOUNDS: S1 normal heart sound present and S2 normal heart sound present PERIPHERAL PULSES: Peripheral pulses 2+ throughout GI: COMMON NORMALS: Normal to inspection, nondistended, normoactive bowel sounds present, Soft to palpation and non-tender PALPATION: Yes Soft to palpation Extremity: COMMON NORMALS: normal to inspection, full ROM and capillary refill normal Neuro: COMMON NORMALS: patient oriented x3, moves all extremities, no focal motor deficits, no sensory deficits noted and gait normal SE NSORIUM/ORIENTATION: Yes alert Psych: COMMON NORMALS: mental status grossly normal, Normal thought process present and cooperative THOUGHT PROCESS: Normal thought process present Course Vital Signs: Vital signs: Vital Signs Temperature 98.2 F 11/24/22 10:18 Pulse Rate 75 11/24/22 11:30 Respiratory Rate 16 11/24/22 11:30 Blood Pressure 161/94 11/24/22 11:30 Pulse Oximetry 97 11/24/22 11:30 Oxygen Delivery Me thod Room Air 11/24/22 11:30 MDM - Skin/Abscess/Foreign Bdy Medicial Decision Making Physical exam completed and documented, I have reviewed the previous medical record from the emergency department here on 11/17/2022. It does appear that he is currently taking clindamycin for his chronic abscess and intermittent fever. I will obtain laboratory evaluation today to include CBC CMP a procalcitonin and lactic acid level as well as blood cultures. After we obtain his laboratory results, I will discuss with the patient the option to do an incision and drainage here in the emergency department versus having him follow-up with the general surgeon. I discussed laboratory findings with the patient and have advised him to continue taking the previously prescribed clindamycin and to make a follow-up appointment with the general surgeon that he was seen by on 11/08/2022 to discuss further evaluation or the need to proceed to surgical incision and drainage. Medical Records I reviewed the patient's medical records. Lab Data I reviewed the patient's lab results. 11/24/22 11:05 11/24/22 11:05 Laboratory Results WBC 3.15 10^3/uL (3.29-11.43) L 11/24/22 11:05 RBC 3.76 10^6/uL (3.85-5.65) L 11/24/22 11:05 Hgb 13.30 g/dL (11.27-16.99) 11/24/22 11:05 Hct 39.4 % (37-53) 11/24/22 11:05 MCV 104.8 fl (82-101) H 11/24/22 11:05 MCH 35.4 pg (27-33) H 11/24/22 11:05 MCHC 33.8 g/dL (30-55) 11/24/22 11:05 RDW 13.7 % (12.1-15.1) 11/24/22 11:05 Plt Count 38 10^3/cmm (157-399) L 11/24/22 11:05 MPV 10.7 fL (7.4-10.4) H 11/24/22 11:05 Neut % (Auto) 55.9 % 11/24/22 11:05 Lymph % (Auto) 30.5 % 11/24/22 11:05 [place] % (Auto) 11.7 % 11/24/22 11:05 Eos % (Auto) 1.3 % 11/24/22 11:05 Baso % (Auto) 0.3 % 11/24/22 11:05 Neut # (Auto) 1.76 10^3/uL (1.8-7.7) L 11/24/22 11:05 Lymph # (Auto) 1.0 10^3/uL (0.8-4.8) 11/24/22 11:05 [place] # (Auto) 0.4 10^3/uL (0.2-0.9) 11/24/22 11:05 Eos # (Auto) 0.0 10^3/uL (0.0-0.8) 11/24/22 11:05 Baso # (Auto) 0.0 10^3/uL (0.0-0.1) 11/24/22 11:05 Nucleated RBC % (auto) 0 % 11/24/22 11:05 Nucleated RBCs # 0.0 /100WBC 11/24/22 11:05 Sodium 136 mmol/L (136-145) 11/24/22 11:05 Potassium 4.0 mmol/L (3.5-5.1) 11/24/22 11:05 Chloride 103 mmol/L (98-107) 11/24/22 11:05 Carbon Dioxide 24 mmol/L (22-29) 11/24/22 11:05 Anion Gap 13.0 (5-19) 11/24/22 11:05 BUN 8 mg/dL (6-20) 11/24/22 11:05 Creatinine 0.7 mg/dL (0.7-1.2) 11/24/22 11:05 GFR Calculation 118.0 mL/min (90-130) 11/24/22 11:05 Glucose 217 mg/dL (65-115) H 11/24/22 11:05 Calculated Osmolality 287 mOsm/kg (285-295) 11/24/22 11:05 Lactic Acid 1.3 mmol/L (0.5-2.2) 11/24/22 11:05 Calcium 8.6 mg/dL (8.5-10.5) 11/24/22 11:05 Total Bilirubin 1.7 mg/dL (0.15-1.2) H 11/24/22 11:05 AST 19 U/L (0-40) 11/24/22 11:05 ALT 14 U/L (0-41) 11/24/22 11:05 Alkaline Phosphatase 89 U/L (40-130) 11/24/22 11:05 Total Protein 5.9 g/dL (6.6-8.7) L 11/24/22 11:05 Albumin 3.4 g/dL (3.5-5.2) L 11/24/22 11:05 Globulin 2.5 g/dL (1.3-4.6) 11/24/22 11:05 Procalcitonin 0.07 ng/mL (0-0.5) 11/24/22 11:05 No radiology studies performed this visit Discharge Plan Discharge Patient Disposition: Home Clinical Impression: Abscess of skin or subcutaneous tissue Condition: Stable Prescriptions: No Action furosemide 20 mg tablet 20 mg PO DAILY glimepiride 4 mg tablet 4 mg PO QPM meloxicam 7.5 mg tablet 7.5 mg PO DAILY PRN (Reason: inflamation) Mounjaro 5 mg/0.5 mL pen injector 5 mg SUBCUT Q7D Rx Instructions: on monday clindamycin HCl 300 mg capsule 300 mg PO TID 10 Days Qty: 30 0RF Vitamin D3 25 mcg (1,000 unit) Capsule 25 mcg PO DAILY Discharge Orders: Discharge ED (Routine); Ordered 11/24/22 Ordered By: Felice Doll Referrals: Rajesh Lu MD [Physician] - 1 week (Call to make a follow-up appointment to discuss additional evaluation and plan of care) Reid Slaughter DO [Primary Care Provider] - Discharge Diet: Advance as tolerated Discharge Activity: Resume usual activity Coding Level of Care Code ED Tinner Automatic for Anthony Carrillo
[2022-11-24 11:15] LABS: Basophils % 0.3 %; Eosinophils % 1.3 %; Hematocrit 39.4 % (37-53); Lymphocytes % 30.5 %; Mean Corpuscular HGB Conc 33.8 g/dL (30-55); Mean Corpuscular Hemoglobin 35.4 pg (27-33); Mean Corpuscular Volume 104.8 fl (82-101); Mean Platelet Volume 10.7 fL (7.4-10.4); Monocytes # 0.4 10^3/uL (0.2-0.9); Monocytes % 11.7 %; Neutrophils # 1.76 10^3/uL (1.8-7.7); Neutrophils % 55.9 %; Nucleated Red Blood Cells % 0 %; Platelet Count 38 10^3/cmm (157-399); Red Blood Count 3.76 10^6/uL (3.85-5.65); Red Cell Distribution Width 13.7 % (12.1-15.1); White Blood Count 3.15 10^3/uL (3.29-11.43)
[2022-11-24 11:30] VITALS: BP 161/94; PULSE 75; RESP 16; O2SAT 97
[2022-11-24 11:33] LABS: Lactic Sepsis W/Reflex 1.3 mmol/L (0.5-2.2)
[2022-11-24 11:34] LABS: Alanine Aminotransferase 14 U/L (0-41); Albumin Level 3.4 g/dL (3.5-5.2); Alkaline Phosphatase 89 U/L (40-130); Aspartate Amino Transferase 19 U/L (0-40); Blood Urea Nitrogen 8 mg/dL (6-20); Calcium 8.6 mg/dL (8.5-10.5); Carbon Dioxide 24 mmol/L (22-29); Chloride 103 mmol/L (98-107); Globulin 2.5 g/dL (1.3-4.6); Glucose 217 mg/dL (65-115); Osmolality Calculated 287 mOsm/kg (285-295); Sodium 136 mmol/L (136-145); Total Bilirubin 1.7 mg/dL (0.15-1.2); Total Protein 5.9 g/dL (6.6-8.7)
[2022-11-24 11:41] LABS: Procalcitonin 0.07 ng/mL (0-0.5)
== END 2022-11-24 13:04 | disposition home or self-care (01) ==
PROVIDERS: Emergency Provider Internal Medicine; PCP Electrodiagnostic Medicine
DX: L02.31 Cutaneous abscess of buttock (principal); E11.9 Type 2 diabetes mellitus without complications; I10 Essential (primary) hypertension; Z87.891 Personal history of nicotine dependence; Z79.84 Long term (current) use of oral hypoglycemic drugs
CPT/HCPCS: 36415; 80053; 83605; 84145; 85025; 99283

== ENCOUNTER → 2023-07-06 09:00 | Outpatient (BNVA) | payer BC, SELFPAY | PROVIDERS: PCP Electrodiagnostic Medicine; Visit Provider Student in an Organized Health Care Education/Training Program | DX: M17.12 Unilateral primary osteoarthritis, left knee | CPT/HCPCS: 73560; 73565 ==

== ENCOUNTER 2023-08-15 13:30 | Oncology outpatient (recurring) (ONCR) | payer BC, SELFPAY ==
[2023-08-09 16:43] LABS: Basophils % 0.4 %; Eosinophils # 0.1 10^3/uL (0.0-0.8); Eosinophils % 2.2 %; Hematocrit 40.5 % (37-53); Lymphocytes # 0.9 10^3/uL (0.8-4.8); Lymphocytes % 32.7 %; Mean Corpuscular HGB Conc 35.8 g/dL (30-55); Mean Corpuscular Hemoglobin 36.5 pg (27-33); Monocytes # 0.3 10^3/uL (0.2-0.9); Monocytes % 10.5 %; Neutrophils # 1.49 10^3/uL (1.8-7.7); Neutrophils % 54.2 %; Nucleated Red Blood Cells % 0 %; Platelet Count 41 10^3/cmm (157-399); Red Blood Count 3.97 10^6/uL (3.85-5.65); Red Cell Distribution Width 14.1 % (12.1-15.1); White Blood Count 2.75 10^3/uL (3.29-11.43)
[2023-08-09 16:56] LABS: Alanine Aminotransferase 22 U/L (0-41); Albumin Level 3.9 g/dL (3.5-5.2); Alkaline Phosphatase 89 U/L (40-130); Anion Gap 13.4 (5-19); Aspartate Amino Transferase 32 U/L (0-40); Blood Urea Nitrogen 9 mg/dL (6-20); Carbon Dioxide 25 mmol/L (22-29); Chloride 106 mmol/L (98-107); Creatinine Clr Calc Pharmacy 166.9212; Globulin 2.5 g/dL (1.3-4.6); Glomerular Filtration Rate 140.4 mL/min (90-130); Glucose 113 mg/dL (65-115); Iron 109 ug/dL (59-158); Lactate Dehydrogenase 121 U/L (135-225); Osmolality Calculated 291 mOsm/kg (285-295); Percent Saturation 66.8 % (20-50); Potassium 3.4 mmol/L (3.5-5.1); Sodium 141 mmol/L (136-145); Total Bilirubin 1.9 mg/dL (0.15-1.2); Total Iron Binding Capacity 163 mcg/dl; Total Protein 6.4 g/dL (6.6-8.7); Unsaturated Iron Binding 54 ug/dL (112-347)
[2023-08-09 17:06] LABS: LAB Peripheral Smear Sent for Review
[2023-08-09 17:11] LABS: Vitamin B12 578 pg/mL (232-1245)
[2023-08-09 17:17] LABS: Folate Level 12.4 ng/mL (4.5-32.2)
[2023-08-13 10:45] LABS: Copper Level 83 mcg/dL (70-175)
[2023-08-15 09:20] LABS: Methylmalonic Acid 68 nmol/L (55-335)
[2023-08-30 10:59] LABS: PNH Clinical Type Not Provided
[2023-08-30 11:01] LABS: PNH RBCS Normal CD59 level
== END 2023-09-06 23:59 | disposition home or self-care (01) ==
PROVIDERS: PCP Electrodiagnostic Medicine; Visit Provider Internal Medicine Medical Oncology
DX: Z53.9 Procedure and treatment not carried out, unspecified reason (principal); D61.818 Other pancytopenia
CPT/HCPCS: 36415; 80053; 82525; 82607; 82746; 83540; 83550; 83615; 83921; 85025; 88184; 88185